=== PATIENT | female | born 1940 | race Caucasian/White ===

== ENCOUNTER 2022-01-25 11:48 | Observation (INO) | payer OTHER, SELFPAY ==
[2022-01-25] VITALS (35 sets, daily range): BP systolic 81–135; BP diastolic 47–87; PULSE 49–83; RESP 13–20; TEMP 36–36.6; O2SAT 83–100; BMI 30.9
--- NOTE | ~2022-01-25 | CT_ITS ---
EXAMINATION: CTA chest PE protocol DATE: 01/25/2022 14:54 INDICATION: left upper PE vs infarct,LT CP X3DAYS TECHNIQUE: Computed tomography angiography (CTA) of the chest was performed with 100 mL Omnipaque-350 intravenous contrast timed to evaluate the pulmonary arteries. Coronal maximum intensity projection 3D-reconstructions were created by the technologist. The dose-length product (DLP) was 404.87 mGy-cm. Automated exposure control and iterative reconstruction technique were employed. COMPARISON: None. FINDINGS: Study quality: Exam limited by respiratory motion artifact within the lower lungs. Pulmonary arteries: No pulmonary emboli detected. Thoracic aorta: Atherosclerotic calcification. Mild ascending aorta ectasia. Lung parenchyma and airways: 1.5 x 2 cm irregular and somewhat nodular appearing area of consolidatio n in the peripheral left upper lobe, with possible areas of bronchiectasis. Lingular and left basilar atelectasis/scar. Right medial basal scar/atelectasis. Thoracic inlet, axillae and chest wall: Unremarkable. Mediastinum: Large hiatal hernia. Heart and pericardium: Mild cardiomegaly. Coronary artery calcifications: Moderate. Pleura: Small fat-containing hernia at the right hemidiaphragm. No effusion.. Upper abdomen: Left parapelvic cyst. Otherwise unremarkable. Bones: No acute osseous finding. IMPRESSION: Limited evaluation of the lower lobes due to respiratory motion artifact. No central or left upper lo be pulmonary embolus. 2 cm left upper lobe nodule may reflect a focus of infection or inflammation. R ecommend follow-up CT after appropriate therapy and in no greater than 3 months to document resolutio n. Reviewed, dictated and finalized at [facility]. IMPRESSION: Limited evaluation of the lower lobes due to respiratory motion artifact. No ce ntral or left upper lobe pulmonary embolus. 2 cm left upper lobe nodule may ref lect a focus of infection or inflammation. Recommend follow-up CT after appropr iate therapy and in no greater than 3 months to document resolution.
--- NOTE | ~2022-01-25 | CT_ITS ---
EXAMINATION: CT diagnostic chest wo con DATE: 01/25/2022 12:48 INDICATION: Left chest pain for 3 days. Shortness of breath. No abdominal aortic aneurysm. TECHNIQUE: Computed tomography (CT) of the chest was performed without intravenous contrast. Automate d exposure control and iterative reconstruction technique were employed. Exam dose: 205.18 mGy-cm to albert exam DLP. COMPARISON: None FINDINGS: There is cardiac megaly. There is trace pericardial fluid. There is extensive coronary roxanna ry calcification. The ascending aorta measures up to 3.6 cm diameter. The mid aortic arch measures 2.4 cm diameter the descending thoracic aorta measures 2.7 cm diameter. There is extensive calcification of the ascending aorta, aortic arch and descending thoracic aorta. No hilar or mediastinal mass lesion or lymphadenopathy is detected. There is approximately 1.8 x 2 cm area of this infiltrate at the peripheral aspect of the anterolater al left upper lobe. This may be a focal pneumonia. Given the somewhat wedge-shaped configuration and the fact that is pleural-based, consider pulmonary embolism. Pulmonary malignancy is an additional co nsideration in the differential diagnosis. Continued short-term radiographic or CT follow-up is recom mended to assure resolution. There is mild lingular infiltrate or atelectasis and mild atelectasis or scarring in the medial segme nt of the middle lobe. There is minimal dependent atelectasis at the lower lobes. Moderately large sliding hiatal hernia. Normal morphology of the adrenal glands.. No suspicious osteolytic or osteoblastic lesions are noted. IMPRESSION: Focal consolidating infiltrates or masses, left upper lobe; diffusion diagnosis includes pneumonia, pulmonary embolus/infarct, pulmonary malignancy. Continued short-term follow-up is recomm ended to ensure clearing. Cardiomegaly, aortic atherosclerosis Aortic ectasia and extensive calcification Moderately prominent sliding hiatal hernia Reviewed, dictated and finalized at [facility]. Reviewed, dictated and finalized at [facility]. IMPRESSION: Focal consolidating infiltrates or masses, left upper lobe; diffus ion diagnosis includes pneumonia, pulmonary embolus/infarct, pulmonary malignan cy. Continued short-term follow-up is recommended to ensure clearing. Cardiomegaly, aortic atherosclerosis Aortic ectasia and extensive calcification Moderately prominent sliding hiatal hernia
--- NOTE | 2022-01-25 12:19 | ECG_ITS ---
Measurements Intervals [place] Rate: 62 P: 77 WI: 162 QRS: 53 QRSD: 85 T: 52 QT: 435 QTc: 445 Interpretive Statements SINUS RHYTHM NORMAL ECG NO PREVIOUS ECG AVAILABLE FOR COMPARISON Electronically Signed On 01-26-2022 7:28:24 CDT by Shaan Nicole M.D.
[2022-01-25] MEDS: SODIUM CHLORIDE 0.9% IV 1,000 ML 999 ML IV CONT (12:36)
[2022-01-25 12:39] LABS: Basophils Absolute Auto 0.02 K/mm3 (0.00-0.10); Basophils Percent Auto 0.3 % (0.0-1.0); Eosinophils Absolute Auto 0.19 K/mm3 (0.02-0.50); Eosinophils Percent Auto 2.5 % (1.0-6.0); Hematocrit 33.5 % (35.0-42.0); Hemoglobin 10.7 g/dL (11.7-13.8); Immature Granulocyte Absolute 0.03 K/mm3 (0.00-0.00); Immature Granulocyte Percent A 0.4 % (0.0-0.0); Lymphocytes Percent Auto 18.2 % (18.0-42.0); Mean Corpuscular HGB Conc 31.9 g/dL (32.0-36.0); Mean Corpuscular Hemoglobin 32.5 pg (27.0-31.0); Mean Corpuscular Volume 101.8 fL (78.0-102.0); Mean Platelet Volume 9.4 fl (9.2-11.8); Monocytes Absolute Auto 0.86 K/mm3 (0.10-0.90); Monocytes Percent Auto 11.2 % (2.0-11.0); Neutrophils Absolute Auto 5.2 K/mm3 (1.7-7.2); Neutrophils Percent Auto 67.4 % (50.0-70.0); Platelet Count Result 187 K/mm3 (150-420); Red Blood Count 3.29 M/mm3 (4.20-5.40); Red Cell Distribution Width 12.7 % (11.6-14.4); White Blood Count 7.7 K/mm3 (4.8-10.8)
--- NOTE | 2022-01-25 12:40 | PC.NURSE ---
Holding morphine and zofran due to pt's low BP. IVF infusing. Will reasses after fluids finish. ERP aware.
[2022-01-25 12:58] LABS: Lactic Acid Reflex 0.4 mmol/L (0.4-2.0)
[2022-01-25 13:00] LABS: Alanine Aminotransferase 16 U/L (14-59); Albumin Level 2.6 g/dL (3.4-5.0); Alkaline Phosphatase 70 U/L (46-116); Anion Gap 2 mmol/L (8-16); Aspartate Amino Transferase 30 U/L (15-37); Bilirubin,Total 0.3 mg/dL (0.00-1.00); Blood Urea Nitrogen 27 mg/dL (7-18); Calcium 8.5 mg/dL (8.5-10.1); Carbon Dioxide 34 mmol/L (21-32); Chloride 107 mmol/L (98-108); Estimated Glomerular Filt Rate 46; Glucose 61 mg/dL (70-99); Osmolality Calculated 299 mOsm/kg (285-295); Potassium 3.8 mmol/L (3.5-5.1); Sodium 143 mmol/L (136-145); Total Protein 6.8 g/dL (6.4-8.2); Troponin I 5.9 ng/L (0.00-60.4)
--- NOTE | 2022-01-25 13:26 | PC.NURSE ---
Per labs, glucose is 61. ERP aware and says it is ok to give Pt food. Pt provided with a ham sandwich, pepsi, and ice cream per her request.
--- NOTE | 2022-01-25 14:22 | PC.NURSE ---
Unable to collect urine sample. Tech took pt to restroom, but pt put toilet paper in the collection hat and it soaked up the small amount of urine. ERP aware.
[2022-01-25] MEDS: AZITHROMYCIN 250 MG TABLET 500 MG PO (15:01)
[2022-01-25 15:05] LABS: Add Urine Microscopic? YES; Appearance Urine Clear (Clear); Bilirubin Urine Negative (Negative); Blood Urine Negative (Negative); Color Urine Yellow (Yellow); Glucose Urine UA Negative (Negative); Ketones Urine Negative (Negative); Leukocyte Esterase Ur Trace (Negative); Nitrate Urine Negative (Negative); Protein Urine Negative (Negative); Specific Grav Ur 1.025 (1.010-1.020); Urobilinogen Urine 0.2 mg/dL (0.2-1.0)
[2022-01-25 15:07] LABS: RBC Urine None seen /hpf (0-2); Squamous Epithelial Cell Urine Few /hpf (Few); WBC Urine 0-3 /hpf (0-3)
[2022-01-25 15:08] LABS: Bacteria Urine Trace /hpf
--- NOTE | 2022-01-25 16:45 | ED.CHESTPAIN ---
HPI - Chest Pain General Chief Complaint: Chest Pain Stated Complaint: Amb Time Seen by Provider: 01/25/22 11:52 Source: patient and RN notes reviewed Mode of arrival: ambulatory Limitations: no limitations History of Present Illness HPI narrative: left chest pain MD complaint: chest pain Onset (ago): hour(s) (12) Timing of current episode: constant Prior episodes: Yes Onset: during rest Pain location: left chest Pain radiation: left arm Severity: mild Pain scale (0-10): 5 Quality: aching, heaviness and dull Relieving factors: nothing Exacerbating factors: exertion Associated symptoms: nausea Related Data Home Medications Medication Instructions Recorded Confirmed acetaminophen 325 mg capsule 325 mg PO Q4H PRN Pain 10/27/21 01/25/22 albuterol sulfate 90 mcg/actuation 2 inh inhalation Q6H PRN Shortness 10/27/21 01/25/22 aerosol inhaler (ProAir HFA) Of Breath Or Wheezing atorvastatin 40 mg tablet 40 mg PO DAILY 10/27/21 01/25/22 benzocaine 15 mg-menthol 2.3 mg 1 obdulio PO .every 2hours PRN Sore 10/27/21 01/25/22 lozenges (Cepacol Sore Throat Throat (benzocaine-menthol)) bisacodyl 5 mg tablet,delayed 5 mg PO DAILY PRN Constipation 10/27/21 01/25/22 release (Fleet Laxative (bisacodyl)) calcium carbonate 500 mg calcium 500 mg PO DAILY 10/27/21 01/25/22 (1,250 mg) tablet carboxymethylcellulose sodium 1 % 1 drp EACH EYE BID 10/27/21 01/25/22 eye drops (Artificial Tears (carboxymethylcellulose)) chlorthalidone 25 mg tablet 12.5 mg PO DAILY 10/27/21 01/25/22 clopidogrel 75 mg tablet (Plavix) 75 mg PO DAILY 10/27/21 01/25/22 docusate sodium 100 mg capsule 100 mg PO BID PRN Constipation 10/27/21 01/25/22 donepezil 10 mg tablet 10 mg PO QHS 10/27/21 01/25/22 famotidine 20 mg tablet 20 mg PO DAILY 10/27/21 01/25/22 fexofenadine 60 mg tablet 60 mg PO Q12H 10/27/21 01/25/22 fluticasone furoate 100 1 inh inhalation DAILY 10/27/21 01/25/22 mcg-vilanterol 25 mcg/dose inhalation powder (Breo Ellipta) losartan 100 mg tablet 100 mg PO DAILY 10/27/21 01/25/22 memantine 10 mg tablet 10 mg PO BID 10/27/21 01/25/22 sertraline 50 mg tablet 50 mg PO DAILY 10/27/21 01/25/22 Allergies Allergy/AdvReac Type Severity Reaction Status Date / Time bupropion Allergy Mild unknown Verified 01/05/22 15:18 Penicillins Allergy Mild unknown Verified 01/05/22 15:18 Sulfa (Sulfonamide Allergy Mild unknown Verified 01/05/22 15:18 Antibiotics) Review of Systems Review of Systems: All systems reviewed & are unremarkable except as noted in HPI and below Constitutional: Constitutional: Reports no additional constitutional complaints Eyes: Eyes: Reports no additional eye complaints ENT: Reports system reviewed and no additional complaints, except as documented Cardiovascular: Cardiovascular: Reports no additional cardiovascular complaints Respiratory: Respiratory: Reports no additional respiratory complaints Gastrointestinal: Gastrointestinal: Reports no additional gastrointestinal complaints Genitourinary: Genitourinary: Reports no additional female genitourinary complaints Musculoskeletal: Musculoskeletal: Reports no additional musculoskeletal complaints Integumentary/Breasts: Skin/Breast: Reports system reviewed and no additional complaints, except as docu Neurologic: Reports system reviewed and no additional complaints, except as documented Psychiatric: Psychiatric: Reports no additional psychiatric complaints Endocrine: Endocrine: Reports no additional endocrine complaints Hematologic/Lymphatic: Hematologic/Lymphatic: Reports no additional hematologic/lymphatic complaints Allergic/Immunologic: Allergic/Immunologic: Reports no additional allergic/immunologic complaints [facility] Past Medical History Medical History Abdominal aortic aneurysm Alzheimer disease COPD (chronic obstructive pulmonary disease) Hyperlipidemia Iron deficiency anemia due to chronic blo
--- NOTE | 2022-01-25 17:46 | ADMGEN ---
1715This patient, Gem Pires, was admitted to 2nd Floor Room 207-2 as obs for cp vs pneumonia. Patient/family oriented to hospital policies and general routines including ID bracelet, bed and alarms, visiting hours, pain management, procedures, bathroom and other care routines, personal items, smoking policy, room service/diet, and visiting hours. Information on how to activate the Rapid Response Team has been discussed. Patient/Family are encouraged to report perceived risks to care and to ask questions if they do not understand what they are told or what they should do.
[2022-01-26] MEDS: ACETAMINOPHEN 325 MG TABLET 650 MG PO (02:46)
[2022-01-26 03:48] VITALS: BP 119/58; PULSE 68; RESP 20; TEMP 36; O2SAT 98
[2022-01-26 08:00] VITALS: BP 128/86; PULSE 58; PULSE 78; RESP 18; TEMP 37; O2SAT 88
[2022-01-26 08:23] LABS: Hematocrit 39.2 % (35.0-42.0); Hemoglobin 12.2 g/dL (11.7-13.8); Mean Corpuscular HGB Conc 31.1 g/dL (32.0-36.0); Mean Corpuscular Hemoglobin 32.1 pg (27.0-31.0); Mean Corpuscular Volume 103.2 fL (78.0-102.0); Mean Platelet Volume 9.2 fl (9.2-11.8); Platelet Count Result 196 K/mm3 (150-420); Red Cell Distribution Width 12.6 % (11.6-14.4); White Blood Count 8.4 K/mm3 (4.8-10.8)
[2022-01-26] MEDS: FLUTICASONE PROPIONATE 0.05% NA SPR 16 GM BTL (*BKC) 1 SPRAY NASAL (08:27)
[2022-01-26] MEDS: SERTRALINE HCL 50 MG TABLET PO (08:28)
[2022-01-26] MEDS: MEMANTINE 5 MG TABLET 10 MG PO (08:29)
[2022-01-26] MEDS: ATORVASTATIN 40 MG TABLET PO (08:30)
[2022-01-26] MEDS: FAMOTIDINE 20 MG TABLET PO (08:30)
[2022-01-26] MEDS: CLOPIDOGREL BISULFATE 75 MG TABLET PO (08:31)
[2022-01-26] MEDS: CALCIUM CARBONATE (OSCAL) 500 MG TABLET PO (08:31)
[2022-01-26 08:54] LABS: Anion Gap 3 mmol/L (8-16); Blood Urea Nitrogen 27 mg/dL (7-18); Carbon Dioxide 34 mmol/L (21-32); Chloride 105 mmol/L (98-108); Estimated Glomerular Filt Rate 53; Glucose 80 mg/dL (70-99); Osmolality Calculated 298 mOsm/kg (285-295); Sodium 142 mmol/L (136-145)
--- NOTE | 2022-01-26 09:34 | PM.SD2 ---
Same Day Admit/Disch: [facility] History of Present Illness Chief complaint: Pneumonia Narrative: Gem Pires is a 81 year old female that presented to the emergency room hypotension and dehydration. Patient was given bolus of IV fluids in the emergency room as well as some IV antibiotics and her blood pressure seemed to improve patient then was admitted into the hospital with a stable blood pressure IV fluids she continue IV antibiotics was diagnosed with pneumonia as well and placed on the MedSur floor. [facility] Past Medical History Medical History Abdominal aortic aneurysm Alzheimer disease COPD (chronic obstructive pulmonary disease) Hyperlipidemia Iron deficiency anemia due to chronic blood loss Major depressive disorder, recurrent, mild Personal history of transient ischemic attack Social History Social History Smoking status: Never smoker Alcohol intake: never Substance use: never Substance use type: does not use Spiritual care concerns: No Comments At time as signature, I have reviewed and agree with nursing past medical, social, surgical and family history. Please see nursing chart for further information. There is no relevant family history pertinent to the presenting complaint. Same Day Admit/Disch: Med Pre-admit Medications Home Medications Medication Instructions Recorded Confirmed Type acetaminophen 325 mg capsule 325 mg PO Q4H PRN Pain 10/27/21 01/25/22 History albuterol sulfate 90 mcg/actuation 2 inh inhalation Q6H PRN Shortness 10/27/21 01/25/22 History aerosol inhaler (ProAir HFA) Of Breath Or Wheezing atorvastatin 40 mg tablet 40 mg PO DAILY 10/27/21 01/25/22 History benzocaine 15 mg-menthol 2.3 mg 1 obdulio PO .every 2hours PRN Sore 10/27/21 01/25/22 History lozenges (Cepacol Sore Throat Throat (benzocaine-menthol)) bisacodyl 5 mg tablet,delayed 5 mg PO DAILY PRN Constipation 10/27/21 01/25/22 History release (Fleet Laxative (bisacodyl)) calcium carbonate 500 mg calcium 500 mg PO DAILY 10/27/21 01/25/22 History (1,250 mg) tablet carboxymethylcellulose sodium 1 % 1 drp EACH EYE BID 10/27/21 01/25/22 History eye drops (Artificial Tears (carboxymethylcellulose)) chlorthalidone 25 mg tablet 12.5 mg PO DAILY 10/27/21 01/25/22 History clopidogrel 75 mg tablet (Plavix) 75 mg PO DAILY 10/27/21 01/25/22 History docusate sodium 100 mg capsule 100 mg PO BID PRN Constipation 10/27/21 01/25/22 History donepezil 10 mg tablet 10 mg PO QHS 10/27/21 01/25/22 History famotidine 20 mg tablet 20 mg PO DAILY 10/27/21 01/25/22 History fexofenadine 60 mg tablet 60 mg PO Q12H 10/27/21 01/25/22 History fluticasone furoate 100 1 inh inhalation DAILY 10/27/21 01/25/22 History mcg-vilanterol 25 mcg/dose inhalation powder (Breo Ellipta) losartan 100 mg tablet 100 mg PO DAILY 10/27/21 01/25/22 History memantine 10 mg tablet 10 mg PO BID 10/27/21 01/25/22 History sertraline 50 mg tablet 50 mg PO DAILY 10/27/21 01/25/22 History fluticasone propionate 50 1 spray intranasal BID #16 grams 01/06/22 01/25/22 Rx mcg/actuation nasal spray,suspension (Flonase Allergy Relief) azithromycin 250 mg tablet 250 mg PO DAILY 6 days #6 tabs 01/26/22 Rx Exam Narrative: GENERAL:Well-appearing, well-nourished, and in no acute distress. HEAD:Normocephalic, atraumatic. EYES: PERRLA and EOMI. ENT: Nares clear, no rhinorrhea or epistaxis. Mucous membranes moist. NECK: Supple. CHEST: Clear to auscultation decreased in lower lobes. No respiratory distress. HEART: Regular rate and rhythm. Normal peripheral pulses. ABDOMEN: Soft, nontender, nondistended, normal active bowel sounds. EXTREMITIES:decreased range of motion. No edema. SKIN: Warm, dry, no rash. NEURO: No focal deficits. Alert and oriented x2. DS: Data Data Completed and Pending Labs on day of discharge: Labs from last 24 hours
[2022-01-26 12:00] VITALS: PULSE 58
[2022-01-26 13:30] VITALS: O2SAT 92
--- NOTE | 2022-01-26 13:39 | PC.NURSE ---
[id number] [facility] van here and care turned over to them. report given to maria victoria. voices no c/o chest pains.. denies any sob.
--- NOTE | 2022-01-31 10:14 | PC.NURSE ---
[facility] nurse states they received and understood the discharge instructions.
== END 2022-01-26 13:30 ==
LOC: CHSED 12:38 → CHS2ND 16:50
PROVIDERS: Nurse Practitioner Family; Admitting Provider Internal Medicine; Emergency Provider Emergency Medicine; Visit Provider Internal Medicine
DX: J44.0 Chronic obstructive pulmonary disease with (acute) lower respiratory infection (principal); J18.9 Pneumonia, unspecified organism; I95.9 Hypotension, unspecified; I71.4 Abdominal aortic aneurysm, without rupture; E78.5 Hyperlipidemia, unspecified; D50.0 Iron deficiency anemia secondary to blood loss (chronic); G30.9 Alzheimer's disease, unspecified; F02.80 Dementia in other diseases classified elsewhere, unspecified severity, without behavioral disturbance, psychotic disturbance, mood disturbance, and anxiety; F33.9 Major depressive disorder, recurrent, unspecified; Z86.73 Personal history of transient ischemic attack (TIA), and cerebral infarction without residual deficits
CPT/HCPCS: 36415; 71250; 71275; 80048; 80053; 81001; 83605; 84484; 85025; 85027; 87040; 93005; 96361; 96365; 99285; A9270; G0378; J0696; J7030; Q9967